=== PATIENT | male | born 1955 | race Caucasian/White ===

== ENCOUNTER 2018-03-25 13:33 | Emergency (ER) | payer OTHER ==
[2018-03-25 14:10] VITALS: BP 100/79
[2018-03-25] MEDS ORDERED: HYDROCORTISONE 100 MG/60 ML RECT ENEMA PR ONE (15:15)
== END 2018-03-25 16:55 | disposition home or self-care (01) ==
LOC: ER 13:33
DX: K62.89 Other specified diseases of anus and rectum (principal); E11.9 Type 2 diabetes mellitus without complications; Z86.73 Personal history of transient ischemic attack (TIA), and cerebral infarction without residual deficits
CPT/HCPCS: 74018

== ENCOUNTER 2019-11-26 13:00 | Emergency (ER) | payer OTHER ==
[~2019-11-26] VITALS: Ht 177.8 cm; Wt 108.9 kg
[2019-11-26 13:50] VITALS: BP 117/71
== END 2019-11-26 13:59 | disposition home or self-care (01) ==
LOC: ER 13:00
DX: S93.601A Unspecified sprain of right foot, initial encounter (principal); M19.071 Primary osteoarthritis, right ankle and foot; I10 Essential (primary) hypertension; E11.9 Type 2 diabetes mellitus without complications; Z86.73 Personal history of transient ischemic attack (TIA), and cerebral infarction without residual deficits; W18.39XA Other fall on same level, initial encounter; Y93.89 Activity, other specified; Y92.89 Other specified places as the place of occurrence of the external cause; Y99.8 Other external cause status
CPT/HCPCS: 73630